=== PATIENT | female | born 1970 | race Caucasian/White ===

== ENCOUNTER 2016-12-06 10:21 | Day surgery (SDC) ==
[2016-12-06] MEDS ORDERED: REGLAN ONE (11:02)
[2016-12-06] MEDS ORDERED: LR 1,000 ML ONE ×3 (11:02→15:18)
[2016-12-06] MEDS ORDERED: PEPCID ONE (11:02)
[2016-12-06] MEDS ORDERED: KEFZOL 2 GM/D5W 50 ML ONE (11:03)
[2016-12-06] MEDS ORDERED: SODIUM CHLORIDE 0.9% ONE (12:54)
[2016-12-06] MEDS ORDERED: MARCAINE 0.25% PF/EPI 1:200,000 ONE (12:54)
[2016-12-06] MEDS ORDERED: KEFZOL 1 GM/D5W 50 ML ONE (13:34)
[2016-12-06] MEDS ORDERED: FENTANYL ONE (14:24)
[2016-12-06] MEDS ORDERED: DIPRIVAN 1% ONE (14:25)
[2016-12-06] MEDS: DILAUDID ONE ×2 (15:03→15:08)
[2016-12-06] MEDS ORDERED: PHENERGAN ONE (15:12)
[2016-12-06] MEDS ORDERED: NEOSTIGMINE ONE (15:17)
[2016-12-06] MEDS ORDERED: ZOFRAN ONE (15:18)
[2016-12-06] MEDS ORDERED: DECADRON ONE (15:18)
[2016-12-06] MEDS ORDERED: ZEMURON ONE (15:18)
[2016-12-06] MEDS ORDERED: QUELICIN (DOSE) ONE (15:18)
[2016-12-06] MEDS ORDERED: XYLOCAINE-MPF 2% ONE (15:18)
[2016-12-06] MEDS ORDERED: ROBINUL ONE (15:18)
[2016-12-06] MEDS ORDERED: NORCO-7.5 PO PRN (15:37)
[2016-12-06] MEDS ORDERED: ZOFRAN IV PRN (15:37)
[2016-12-06 15:50] VITALS: BP 152/84
--- NOTE | 2016-12-06 15:57 | OPERATIVE NOTE ---
PROCEDURE DATE: 12/06/2016 PREOPERATIVE DIAGNOSIS: Symptomatic cholelithiasis. POSTOPERATIVE DIAGNOSIS: Symptomatic cholelithiasis. PROCEDURE PERFORMED: Laparoscopic cholecystectomy. ESTIMATED BLOOD LOSS: 5 mL. ANESTHESIA: General. SPECIMENS: Gallbladder. OPERATIVE INDICATION: This is a 46-year-old female with colicky right upper quadrant pain and nausea after meals. Ultrasound showed sludge. Cholecystectomy is indicated. OPERATIVE FINDINGS: There was a distended gallbladder with small stones noted within it. A very small cystic duct, that would not admit a cannula for cholangiogram despite multiple attempts and making the ductotomy near completely across. OPERATIVE NOTE: Risks, benefits, alternatives discussed with the patient, she consented to the procedure. She was seen in the preoperative area and surgery to be performed was confirmed. She was taken to the operating room, placed in supine position. General anesthesia was induced without complication. Preincisional antibiotics were administered. Abdomen was prepped with chlorhexidine solution, draped in usual fashion. Time-out was performed between nursing, surgical, and anesthesia staff. All agreed on procedure to be performed. Periumbilical block was performed. A curvilinear infraumbilical incision was made at the previous curvilinear incision that she had and carried down to the level of the fascia. The fascia was entered in the midline and the abdomen entered in a controlled fashion. A 12 mm Valorie trocar was placed and the abdomen was insufflated to 15 mmHg. We inspected that there is no injury to underlying structures and there was not. We then placed three 5 mm trocars, one at the epigastrium, one in the midclavicular line off the costal margin and one more laterally after infiltration of the peritoneum with local anesthetic. Using a locking grasper, we grasped down the gallbladder and retracted it cephalad. We then started laterally, progressing medially. Took down some omental adhesions. The duodenum was slightly adhered to the infundibulum. We took this down carefully and bluntly without difficulty. Starting laterally and progressing medially, we identified the infundibulocystic junction and the critical view of safety was established. The lymphatic structures were dissected with electrocautery in this area. We dissected the cystic duct over a long course. It was a very small, diminutive duct. We attempted a cholangiogram. Placed a clip on the gallbladder side, made a ductotomy, but the lumen of the gallbladder or the cystic duct was so small that the catheter would not be admitted despite making the ductotomy as large as possible. As such, we aborted this in and triply clipped the cystic duct and divided it. We then dissected out the cystic artery, doubly clipped and divided this. Took the gallbladder off underneath the liver bed with electrocautery, obtaining hemostasis as we went without rupture of the gallbladder. We placed gallbladder in EndoCatch bag. We then inspected the abdomen, copiously irrigated, and noted that no bile was leaking from the cystic duct and hemostasis was confirmed. We removed all 3 trocars under direct visualization and were hemostatic. We then desufflated the abdomen and brought the gallbladder out through the umbilical incision. Closed the fascia with 0 Vicryl sutures in interrupted fashion. Skin was closed with 4-0 Monocryl. Dermabond was applied for dressing. All sponge, instrument and needle counts were correct x2. I talked to the family. Plan for her to go home.
== END 2016-12-06 16:25 | disposition home or self-care (01) ==
LOC: OPS 10:21
PROVIDERS: ATTEND Surgery
DX: K80.10 Calculus of gallbladder with chronic cholecystitis without obstruction (principal)
CPT/HCPCS: 88304; C1751; J0330; J0690; J1100; J1170; J2405; J2550; J3010; J7120; Q9966; J2710